=== PATIENT | female | born 1985 | race Caucasian/White ===

== ENCOUNTER 2016-06-04 20:12 | Emergency (ER) | payer BC ==
--- NOTE | 2016-06-04 20:29 | Emergency Department Record ---
History of Present Illness - General Chief complaint: ENT Stated complaint: FOREIGN BODY STUCK IN EAR Time Seen by Provider: 06/04/16 20:28 Source: Patient Mode of Arrival: Ambulatory Limitations: No limitations - History of Present Illness Initial comments: The patient was having R ear pain today and her friend noticed a FB in the R ear. She denies any other issues. complaint: Foreign body Onset/Timin -: Hour(s) Location: R ear Severity: Mild Quality: Other Consistency: Other Improves with: Other Worsens with: Other Context-Epistaxis: Other Context- Dental: Other Context- Ear: Other Associated Symptoms: Other - Related Data Allergies Allergy/AdvReac Type Severity Reaction Status Date / Time amoxicillin [Amoxicillin] Allergy ANAPHYLAXIS Verified 06/04/16 20:25 hydrocodone bitartrate Allergy ANAPHYLAXIS Verified 06/04/16 20:25 [From Vicodin] Travel Screening - Travel/Exposure Within Last 30 Days Have you traveled within the last 30 days?: No - Travel/Exposure Within Last Year Have you traveled outside the [place] in the last year?: No - Additonal Travel Details Have you been exposed to anyone with a communicable illness?: No - Travel Symptoms Symptom Screening: None Review of Systems Constitutional: Denies: Chills, Fever Eyes: Denies: Eye discharge ENT: Denies: Congestion Respiratory: Denies: Cough Past Medical History - SOCIAL HISTORY Smoking Status: Never smoker - RESPIRATORY Hx Respiratory Disorders: Yes Hx Asthma: Yes - CARDIOVASCULAR Hx Cardio Disorders: No - NEURO Hx Neuro Disorders: No - GI Hx GI Disorders: No - Hx Genitourinary Disorders: No - ENDOCRINE Hx Endocrine Disorders: No - MUSCULOSKELETAL Hx Musculoskeletal Disorders: No - PSYCH Hx Psych Problems: No - HEMATOLOGY/ONCOLOGY Hx Hematology/Oncology Disorders: No Family Medical History Any Significant Family History?: No Physical Exam - General General Appearance: Alert, Oriented x3, Cooperative, No acute distress - Head Head exam: Atraumatic, Normocephalic, Normal inspection - Eye Eye exam: Normal appearance, PERRL, EOMI - ENT Ear exam: Normal external inspection, Other (There is a metal back of the earring FB in the ear canal.) Course Vital Signs 06/04/16 20:19 Temperature 98 F Pulse Rate 76 Respiratory 20 Rate Blood Pressure 150/92 Pulse Ox 98 - Reevaluation(s) Reevaluation #1: Procedure note: The R ear canal FB was removed with an ear currette with no difficulty. There were no problems and no complications. 06/04/16 20:37 Disposition Disposition: Discharge Clinical Impression: Ear foreign body Qualifiers: Encounter type: initial encounter Laterality: right Qualified Code(s): T16.1XXA - Foreign body in right ear, initial encounter Disposition: Home, Self-Care Condition: (1) Good Instructions: Ear Foreign Body (ED) Additional Instructions: Please use the ear drops 3 drops 3 times a day for 5 days. Please see ENT for recheck next week to have the ears cleared out. Forms: Patient Portal Access Time of Disposition: 20:35
[2016-06-04] MEDS ORDERED: NEOMYCIN/POLYMYXIN B SULF/HC 10ML BTL OT ONE (20:34)
== END 2016-06-04 20:47 | disposition home or self-care (01) ==
LOC: ER 20:12
DX: T16.1XXA Foreign body in right ear, initial encounter (principal); X58.XXXA Exposure to other specified factors, initial encounter
CPT/HCPCS: 69200; 99282